=== PATIENT | male | born 1960 | race Caucasian/White ===

== ENCOUNTER 2021-04-28 17:36 | Emergency (ER) | payer OTHER ==
[~2021-04-28] VITALS: Ht 180.3 cm; Wt 96.2 kg
[2021-04-28 18:10] VITALS: BP 93/57
[2021-04-28 21:29] LABS: HEMATOCRIT 32.8 % (42.0-52.0); HEMOGLOBIN 10.6 gm/dL (14.0-18.0); MCH 27.6 pg (26.0-34.0); MCHC 32.4 g/dL (28.0-37.0); MCV 85.1 fL (80.0-100.0); MPV 8.3 fl. (7.2-11.1); NUCLEATED RBCS 0 /100WBC; PLATELET COUNT* 196 thou/uL (150-400); RBC 3.85 mil/uL (4.50-6.00); RDW-CV 15.6 % (10.5-14.5); WBC 10.3 thou/uL (4.0-11.0)
[2021-04-28 21:33] LABS: ANION GAP 8 mmol/L (7-16); BUN 46 mg/dL (7-18); CALCIUM 8.2 mg/dL (8.5-10.1); CHLORIDE 99 mmol/L (98-107); CO2 23 mmol/L (21-32); CREATININE 1.4 mg/dL (0.6-1.3); GLUCOSE 229 mg/dL (70-99); SODIUM 130 mmol/L (136-145)
[2021-04-28 21:44] LABS: ALBUMIN 2.2 g/dL (3.4-5.0); ALKALINE PHOSPHATASE 96 U/L (46-116); NT-PRO BRAIN NAT PEPTIDE 7616 pg/mL (<300); SGOT 15 U/L (15-37); SGPT < 6 U/L (30-65); TOTAL BILIRUBIN 1.1 mg/dL (<0.1-1.0); TOTAL PROTEIN 6.2 g/dL (6.4-8.2)
[2021-04-28 21:56] LABS: ABSOLUTE LYMPHOCYTES 0.7 thou/uL (0.8-5.3); ABSOLUTE MONOCYTES 0.6 thou/uL (0.0-1.2)
[2021-04-28 21:58] LABS: LARGE PLATELETS OCCASIONAL; PLATELET ESTIMATE ADEQUATE
[2021-04-28 23:55] VITALS: BP 93/60
--- NOTE | 2021-04-29 09:05 | EKG ---
[place] [address] ELECTROCARDIOGRAM REPORT Name: WINDYSHOAIB FAHAD Room: [facility]#: [id number] Admission: 04/28/21 Attend Phys: Discharge: 04/28/21 Date of : 58 Date of Service: 04/28/211926 Report #: [id number] THIS REPORT FOR: //name// [facility] ED Test Date: 2021-04-28 Test Time: 19:27:27 Pat Name: SHOAIB TEMPLE Department: Room: [facility] Gender: M Highway Engineering Technician: : 1960 Requested By: Mayra Dumont Order Number: [id number] MD: Robles Gordon Measurements Intervals [place] Rate: 99 P: 51 [place]: 159 QRS: -52 QRSD: 130 T: 96 QT: 362 QTc: 465 Interpretive Statements Sinus tachycardia Atrial premature complexes Left bundle branch block No previous ECG available for comparison Electronically Signed On 04-29-2021 9:05:03 CDT by Robles Gordon [email or web address] <ELECTRONICALLY SIGNED> By: Robles Gordon MD, [facility] 04/29/21904 26 26 Robles Gordon MD, [facility] /EPI
== END 2021-04-28 23:55 | disposition short-term general hospital (02) ==
LOC: M.ERS 17:36 → M.TBA-ER 22:20 → M.ERS 22:20
PROVIDERS: Nurse Practitioner Family
DX: I21.4 Non-ST elevation (NSTEMI) myocardial infarction (principal); Z20.822 Contact with and (suspected) exposure to COVID-19; L03.115 Cellulitis of right lower limb; R65.21 Severe sepsis with septic shock; Z88.7 Allergy status to serum and vaccine; Z96.651 Presence of right artificial knee joint

== ENCOUNTER 2021-06-05 07:55 | Emergency (ER) | payer OTHER ==
[~2021-06-05] VITALS: Ht 180.3 cm; Wt 96.2 kg
[2021-06-05] MEDS ORDERED: METFORMIN HCL500 M3 PO (08:10)
[2021-06-05] MEDS ORDERED: RANEXA500 MG PO (08:11)
[2021-06-05] MEDS ORDERED: CEPHALEXIN250 MG (08:11)
[2021-06-05 10:24] VITALS: BP 101/72
== END 2021-06-05 10:25 | disposition home or self-care (01) ==
LOC: M.ERS 07:55
DX: T81.30XA Disruption of wound, unspecified, initial encounter (principal); E11.9 Type 2 diabetes mellitus without complications; Z96.651 Presence of right artificial knee joint; Z79.899 Other long term (current) drug therapy; Z88.7 Allergy status to serum and vaccine; Y92.89 Other specified places as the place of occurrence of the external cause

== ENCOUNTER → 2021-12-25 | Outpatient (CLI) | payer OTHER ==
[~2021-12-25] MED LIST: CEPHALEXIN250 MG; METFORMIN HCL500 M3 PO; RANEXA500 MG PO
== END ==
LOC: M.WC 10:00
PROVIDERS: ATTEND Family Medicine
DX: T87.89 Other complications of amputation stump (principal); E11.622 Type 2 diabetes mellitus with other skin ulcer; L89.892 Pressure ulcer of other site, stage 2; L97.812 Non-pressure chronic ulcer of other part of right lower leg with fat layer exposed; L84 Corns and callosities; E11.65 Type 2 diabetes mellitus with hyperglycemia; E78.5 Hyperlipidemia, unspecified; I10 Essential (primary) hypertension; Z87.891 Personal history of nicotine dependence; Z96.651 Presence of right artificial knee joint; Z79.84 Long term (current) use of oral hypoglycemic drugs; Y83.5 Amputation of limb(s) as the cause of abnormal reaction of the patient, or of later complication, without mention of misadventure at the time of the procedure

== ENCOUNTER → 2022-01-09 | Outpatient (CLI) | payer OTHER | LOC: M.WC 01-02 09:00 | PROVIDERS: ATTEND Family Medicine | DX: T87.89 Other complications of amputation stump (principal); E11.622 Type 2 diabetes mellitus with other skin ulcer; L89.892 Pressure ulcer of other site, stage 2; L97.812 Non-pressure chronic ulcer of other part of right lower leg with fat layer exposed; L84 Corns and callosities; E11.65 Type 2 diabetes mellitus with hyperglycemia; E78.5 Hyperlipidemia, unspecified; I10 Essential (primary) hypertension; Z87.891 Personal history of nicotine dependence; Z96.651 Presence of right artificial knee joint; Y83.5 Amputation of limb(s) as the cause of abnormal reaction of the patient, or of later complication, without mention of misadventure at the time of the procedure ==